=== PATIENT | male | born 1945 | race Caucasian/White ===

== ENCOUNTER 2018-12-29 15:17 | Outpatient (CLI) | payer MEDICARE ==
--- NOTE | 2018-12-29 19:14 | MRI ---
MRI OF THE RIGHT SHOULDER WITHOUT CONTRAST: 12/29/18 HISTORY: M75.101 - nontraumatic tear of right rotator cuff. COMPARISON: None. FINDINGS: BICEPS TENDON: Moderate intra-articular tendinosis of biceps tendon with thickening. LABRUM: There is tear throughout the superior labrum extending into the biceps expansion. ROTATOR CUFF: There is a high grade tendinosis and multifocal bursa surface fraying throughout the supraspinatus te ndon without any full thickness perforation. 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 There appears to be communicatio n of the acromioclavicular joint with the subacromial/subdeltoid bursa which contains debris. Synovitis of the rotator interval. Loss of normal subcoracoid fat. Muscle bulk is normal. There is extrinsic impression upon the superior margin of the supraspinatus mu scle from the large subacromial/subdeltoid bursa effusion. IMPRESSION: 1. High grade tendinosis of the supraspinatus and infraspinatus tendons without a full thickness perforation. 2. Very large subacromial/subdeltoid bursal effusion containing debris and synovitis which appea rs to communicate with the severely degenerative acromioclavicular joint. There is also some mild lat eral downsloping of the acromion causing some narrowing of the subacromial space with bursal surface fraying of the supraspinatus tendon. 3. Intra-articular tendinosis of the biceps tendon which is thickened. 4. Superior labral tear with subcortical cyst formation of the glenoid and supraglenoid tubercle . 5. No full thickness rotator cuff tear. Only mild bursa surface fraying and moderate tendinosis. POS: [facility]
== END 2018-12-29 15:18 | disposition home or self-care (01) ==
LOC: SCSMRI 15:17
PROVIDERS: ATTEND Orthopaedic Surgery
DX: M75.101 Unspecified rotator cuff tear or rupture of right shoulder, not specified as traumatic (principal); S43.401A Unspecified sprain of right shoulder joint, initial encounter; M75.91 Shoulder lesion, unspecified, right shoulder; M65.811 Other synovitis and tenosynovitis, right shoulder; M25.411 Effusion, right shoulder; M85.611 Other cyst of bone, right shoulder

== ENCOUNTER 2024-08-02 11:04 | Outpatient (CLI) | payer MEDICARE | END 2024-08-02 11:05 | disposition home or self-care (01) | LOC: SCSMRI 11:04 | PROVIDERS: ATTEND Neurological Surgery | DX: M54.50 Low back pain, unspecified (principal); M48.061 Spinal stenosis, lumbar region without neurogenic claudication; M48.07 Spinal stenosis, lumbosacral region | CPT/HCPCS: 72148 ==